=== PATIENT | male | born 2000 | race Caucasian/White ===

== ENCOUNTER 2022-08-14 12:56 | Emergency (ER) | payer BC, SELFPAY ==
--- NOTE | ~2022-08-14 | XR_ITS ---
XR shoulder LT min 2V DATE: 08/14/2022 14:26 INDICATION: Shoulder pain. History of dislocation 3 times TECHNIQUE: 4 views of left shoulder COMPARISON: None FINDINGS: No fracture or dislocation, periosteal reaction or bone destruction or abnormal soft tissue calcification. Normal alignment at the acromioclavicular and glenohumeral joints. There is slight pe riarticular spurring of the left humeral head consistent with mild left glenohumeral osteoarthritis. IMPRESSION: Mild glenohumeral osteoarthritis Reviewed, dictated and finalized at location B. [employer]
[2022-08-14 14:08] VITALS: BP 120/67; PULSE 77; RESP 16; TEMP 36.6; O2SAT 100
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
== END 2022-08-14 16:20 | disposition home or self-care (01) ==
PROVIDERS: Emergency Provider Physician Assistant; PCP Family Medicine
DX: M19.012 Primary osteoarthritis, left shoulder (principal); M25.312 Other instability, left shoulder
CPT/HCPCS: 73030; 99283; A4565

== ENCOUNTER 2025-05-31 10:32 | Emergency (ER) | payer BC, SELFPAY ==
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
[2025-05-31 10:42] VITALS: BP 130/77; PULSE 87; RESP 18; TEMP 36.3; O2SAT 100
--- OUTSIDE RECORDS SUMMARY | 2025-05-31 12:19 | XMS_ITS | Clinical Summary ---
Author Organization [email or web address] Address [address] [place] [address] Care Team Providers Care Supervisor Train Operations Name Role Phone Nataliia Aceves MD Primary Care Provider [phone] Source Comments [facility],non-owned Affiliates and Associated Physician Practices is amultiple site organization consisting of ambulatory clinics and hospital sitesin [place], [place], [place] and [place]. This disclosure is being madepursuant to the Care Everywhere program and may not contain all information available regarding this patient. Last updated 18.[email or web address] Allergies No known active allergies Medications * Be aware that medications may not be up to date on this document. Alwaysverify current medications with the patient. No known medications Active Problems Problem Noted Date Diagnosed Date Closed fracture of shaft of clavicle 07/01/2014 Closed fracture of lateral condyle of humerus Immunizations Immunization Administration Dates Next Due DTaP VACCINE IM (6wk-6yrs) 09/19/2003,,04/01/2000,01/21,1999 HEP A PEDS 2 DOSE 02/02/2009,10/22/2002 HEP B VACCINE, PED/ADOL 09/29/2000,06/16/2000, HIB BOOSTER 12/17/2000, 0,01/22/2000,11/21 Human Papilloma Virus Nini valent Vaccine 01/03/2014,08/30/2013,01/11/2013 LEONARDA VACCINE QUAD LAIV4 PF NASAL 08/30/2013 MENINGOCOCCAL ACWY (MCV4P) VAC IM 02/14/2011 MMR 09/19/2003,12/17/2000 PNEUMOCOCCAL CONJ, PEDS 12/17/2000,09/29/2000, POLIO IPV 09/19/2003, 1,01/22/2000,11/21 PPD 01/17/2004 TDAP (7yrs+) 02/14/2011 VARICELLA 05/10/2010,09/29/2000 Social History Tobacco Use Types Packs/Day Years Used Date Smoking Tobacco: Never Smokeless Tobacco: Never Alcohol Use Standard Drinks/Week Comments Yes 0 (1 standard drink = 0.6 oz pur e alcohol) Sex and Gender Information Value Date Recorded Sex Assigned at Not on file 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 Gender Identity Not on file Sexual Orientation Not on file 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 Not on file Not on file Last Filed Vital Signs Vital Sign Reading Time Taken Comments Blood Pressure 122/82 05/26/2021 3:56 AM CDT Pulse 93 05/26/2021 3:56 AM CDT Temperature 36.3 C (97.4 F) 05/26/2021 3:56 AM CDT Respiratory Rate 16 05/26/2021 3:56 AM CDT Oxygen Saturation 98% 05/26/2021 3:56 AM CDT Inhaled Oxygen Concentration - - Weight 63.5 kg (140 lb) 05/26/2021 3:56 AM CDT Height 185.4 cm (6' 1) 05/26/2021 3:56 AM CDT Body Mass Index 18.47 05/26/2021 3:56 AM CDT Plan of Treatment Health Maintenance Due Date Last Done Comments HIV SCREENING 2014 HEPATITIS C SCREENING 09/07/2017 DTAP/TDAP/TD VACCINES (7 - Td or Tdap) 02/14/2021 02/14/2011, 09/19/2003, 12/17/2000, Additional history exists DEPRESSION SCREENING 09/15/2024 COVID-19 VACCINE (1 - 2024-25 season) 2025 INFLUENZA VACCINE (#1) 2025 08/30/2013 ZOSTER VACCINE (1 of 2) 2049 HEPATITIS B VACCINE Completed 09/29/2000, 06/16/2000, 04/01/2000 HIB VACCINE Completed 12/17/2000, 03/15, 01/22/2000, Additional history exists PNEUMOCOCCAL VACCINE Completed 12/17/2000, 09/29/2000, 06/16/2000 MENINGOCOCCAL GROUPS A/C/Y/W VACCINE Aged Out 02/14/2011 No longer eligible based on patient's age to complete this topic HPV VACCINE Completed 01/03/2014, 08/15, 01/11/2013 MENINGOCOCCAL (Group B) VACCINE SHARED DECISION-MAKING Aged Out No longer eligible based on patient's age to complete this topic Medical Devices Implanted Type Area Beef Selector Device Identifier Shelf Expiration Date Model / Serial / Lot Plate Distal Hum Kyle Implanted:Qty : 1 on 07/01/2014 by Maryjane Meier MD at [facility] Right: Humerus [employer] [id number] / / Plate Clav Sup Med Kyle L 6hole 73mm Implanted:Qty : 1 on 07/01/2014 by Maryjane Meier MD at [facility] Right: Clavicle [employer] [id number] / / Scrw Kyle 2.7mm X 12mm Implanted:Qty : 2 on 07/01/2014 by Maryjane Meier MD at [facility] Right: Clavicle [employer] [id number] / / Scrw Cortx 3.5mm X 14mm Implanted:Qty : 1 on 07/01/2014 by Maryjane Meier MD at [facility] Right: Clavicle [employer] [id number] / / Scrw Cortx 3.5mm X 12mm Implanted:Qty : 2 on 07/01/2014 by Maryjane Meier MD at [facility] Right: Clavicle [employer] [id number] / / Screw Kyle 2.7mm X 10mm Implanted:Qty : 2 on 07/01/2014 by Maryjane Meier MD at [facility] Right: Clavicle [id number] / / Scrw Kyle 2.7mm X 24mm Implanted:Qty : 1 on 07/01/2014 by Maryjane Meier MD at [facility] Right: Humerus [employer] [id number] / / Scrw Kyle S-T T15 2.7mm X 46mm Implanted:Qty : 1 on 07/01/2014 by Maryjane Meier MD at [facility] Right: Humerus [employer] [id number] / / 2.7x48 Locking Screw Implanted:Qty : 1 on 07/01/2014 by Maryjane Meier MD at [facility] Right: Humerus [employer] [id number] / / Scrw Kyle Jaja-Loc 2.7mm X 50mm Implanted:Qty : 1 on 07/01/2014 by Maryjane Meier MD at [facility] Right: Humerus [employer] [id number] / / Scrw Kyle Jaja-Loc S-T 3.5mm X 28mm Implanted:Qty : 1 on 07/01/2014 by Maryjane Meier MD at [facility] Right: Humerus [employer] [id number] / / Scrw Kyle Jaja-Loc S-T 3.5mm X 24mm Implanted:Qty : 1 on 07/01/2014 by Maryjane Meier MD at [facility] Right: Humerus [employer] [id number] / / Scrw Barrie S-T T15 2.7mm X 46mm Implanted:Qty : 1 on 07/01/2014 by Maryjane Meier MD at [facility] Right: Humerus [employer] [id number] / / Scrw Cortx 3.5mm X 20mm Implanted:Qty : 1 on 07/01/2014 by Maryjane Meier MD at [facility] Right: Humerus [employer] [id number] / / Insurance [id number] [place] [address] MEDICAID RAUL WARNER [id number] Care Teams Supervisor Train Operations Relationship Specialty Start Date End Date Nataliia Aceves MD [address] [place] [phone] PCP - General 05/28/21
--- OUTSIDE RECORDS SUMMARY | 2025-05-31 14:35 | XMS_ITS | Clinical Summary ---
Author Organization [facility] Address [address] [place] [address] Care Team Providers Care Translator Interpreter Name Role Phone Nataliia Aceves MD Primary Care Provider [phone] Source Comments [facility],non-owned Affiliates and Associated Physician Practices is amultiple site organization consisting of ambulatory clinics and hospital sitesin [place], [place], [place] and [place]. This disclosure is being madepursuant to the Care Everywhere program and may not contain all information available regarding this patient. 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 Not on file Not [...] this topic Medical Devices Implanted Type Area Dock Builder Device Identifier Shelf Expiration Date Model / Serial / Lot Plate Distal Hum Kyle Implanted:Qty : 1 on 07/01/2014 by Maryjane Meier MD at [facility] Right: Humerus [employer] [id number] / / Plate Clav Sup Med Kyle L 6hole 73mm Implanted:Qty : 1 on 07/01/2014 by Maryjane Meier MD at [facility] Right: Clavicle [employer] [id number] / / Scrw Kyle 2.7mm X 12mm Implanted:Qty : 2 on 07/01/2014 by Maryjane Meier MD at [facility] Right: Clavicle [employer] [id number] / / Scrw Cortx 3.5mm X 14mm Implanted:Qty : 1 on 07/01/2014 by Maryjane Meier MD at [facility] Right: Clavicle [employer] [id number] / / Scrw Cortx 3.5mm X 12mm Implanted:Qty : 2 on 07/01/2014 by Maryjane Meier MD at [facility] Right: Clavicle [employer] [id number] / / Screw Kyle 2.7mm X 10mm Implanted:Qty : 2 on 07/01/2014 by Maryjane Meier MD at [facility] Right: Clavicle [id number] / / Scrw Kyle 2.7mm X 24mm Implanted:Qty : 1 on 07/01/2014 by Maryjane Meier MD at [facility] Right: Humerus [employer] [id number] / / Scrw Kyle S-T T15 2.7mm X 46mm Implanted:Qty : 1 on 07/01/2014 by Maryjane Meier MD at [facility] Right: Humerus [employer] [id number] / / 2.7x48 Locking Screw Implanted:Qty : 1 on 07/01/2014 by Maryjane Meier MD at [facility] Right: Humerus [employer] [id number] / / Scrw Kyle Jaja-Loc 2.7mm X 50mm Implanted:Qty : 1 on 07/01/2014 by Maryjane Meier MD at [facility] Right: [employer] [id number] / / Scrw Kyle Jaja-Loc S-T 3.5mm X 28mm Implanted:Qty : 1 on 07/01/2014 by Maryjane Meier MD at [facility] Right: Humerus [employer] [id number] / / Scrw Kyle Jaja-Loc S-T 3.5mm X 24mm Implanted:Qty : 1 on 07/01/2014 by Maryjane Meier MD at [facility] Right: Humerus [employer] [id number] / / Scrw Barrie S-T T15 2.7mm X 46mm Implanted:Qty : 1 on 07/01/2014 by Maryjane Meier MD at [facility] Right: H[employer]us [employer] [id number] / / Scrw Cortx 3.5mm X 20mm Implanted:Qty : 1 on 07/01/2014 by Maryjane Meier MD at [facility] Right: Humerus [employer] [id number] / / Insurance [id number] [place] [address] MEDICA[place] RAUL WARNER [id number] Care Teams Translator Interpreter Relationship Specialty Start Date End Date Nataliia Aceves MD [address] [place] [phone] PCP - General 05/28/21
[2025-05-31] MEDS: KETOROLAC 30 MG/ML VIAL (*BKC) IV PUSH (14:41)
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
[2025-05-31 15:07] VITALS: BP 131/73; PULSE 71; RESP 60; O2SAT 100
== END 2025-05-31 15:08 | disposition home or self-care (01) ==
PROVIDERS: Emergency Provider Family Medicine; PCP Family Medicine
DX: S16.1XXA Strain of muscle, fascia and tendon at neck level, initial encounter (principal); S40.811A Abrasion of right upper arm, initial encounter; V86.56XA Driver of dirt bike or motor/cross bike injured in nontraffic accident, initial encounter
CPT/HCPCS: 70450; 72125; 96374; 99284; J1885